=== PATIENT | female | born 1960 | race Caucasian/White ===

== ENCOUNTER → 2022-01-07 | Outpatient (CLI) | payer OTHER ==
[~2022-01-07] MED LIST: BEBTELOVIMAB (EUA) 175 MG/2 ML VIAL IV ONE; SODIUM CHLORIDE 0.9% 500 ML 500 ML in EMPTY BAG 1 BAG IV PRN
[2022-01-07 11:39] VITALS: RESP 18; TEMP 99.8
[2022-01-07 12:42] VITALS: BP 158/80; PULSE 105
== END ==
LOC: PROCWHC3 10:55
PROVIDERS: ATTEND Physician Assistant
DX: U07.1 COVID-19 (principal); E66.9 Obesity, unspecified; E11.9 Type 2 diabetes mellitus without complications; Z28.310 Unvaccinated for COVID-19; Z68.36 Body mass index [BMI] 36.0-36.9, adult
CPT/HCPCS: Q0222; M0222

== ENCOUNTER → 2022-04-29 | Outpatient (CLI) | payer OTHER ==
--- NOTE | 2022-04-29 10:32 | US ---
EXAMINATION TYPE: US abdomen complete DATE OF EXAM: 04/29/2022 COMPARISON: NONE CLINICAL HISTORY: R10.9 UNSPECIFIED ABDOMINAL PAIN. TECHNIQUE: Multiple sonographic images of the abdomen are obtained. FINDINGS: EXAM MEASUREMENTS: Liver Length: 20.6 cm Gallbladder Wall: 0.2 cm CBD: 0.5 cm Spleen: 14.0 cm Right Kidney: 12.0 x 4.1 x 4.8 cm Left Kidney: 12.3 x 5.1 x 5.1cm SAFETY AND SECURITY MANAGER NOTES: Patient of large body habitus. Extensive overlying bowel gas obscuring midline. Pancreas: Obscured by bowel gas Liver: Increased attenuation, measures large Gallbladder: wnl Evidence for sonographic Byrne's sign: no CBD: wnl Spleen: measures large Right Kidney: wnl Left Kidney: cyst measuring 1.3 x 1.3 x 1.3cm Upper IVC: wnl Abd Aorta: Mostly obscured by overlying bowel gas The intrahepatic portion of the IVC and proximal abdominal aorta are within normal limits. There is no evidence of cholelithiasis. Common bile duct is unremarkable. The visualized portions of the koehler creas are homogenous. Kidneys are symmetric and free of hydronephrosis. No solid renal lesions ar e seen. IMPRESSION: 1. Hepatomegaly with underlying hepatic steatosis. 2. Splenomegaly
== END | disposition home or self-care (01) ==
LOC: RADUSWWP 09:24
PROVIDERS: ATTEND Family Medicine
DX: K76.0 Fatty (change of) liver, not elsewhere classified (principal); R16.2 Hepatomegaly with splenomegaly, not elsewhere classified
CPT/HCPCS: 76700

== ENCOUNTER → 2022-05-20 | Outpatient (CLI) | payer OTHER ==
--- NOTE | 2022-05-20 09:26 | NM ---
EXAMINATION TYPE: NM hepatobiliary w EF DATE OF EXAM: 05/20/2022 COMPARISON: NONE INDICATION: R 10.9 TECHNIQUE: After the intravenous administration of 4.3 mCi Tc 99m Mebrofenin hepatobiliary scintigrap hy is performed. Images were obtained immediately post injection. FINDINGS: There is prompt uptake and excretion of radiotracer by the liver. Extrahepatic ducts are identified at C4 minutes. The gallbladder is visualized within 6 minutes. Small bowel activity is noted within 12 minutes. At one hour 8 ounces of oral ensure plus is given to mimic CCK and gallbladder ejection fraction is c alculated at 71 %, which is in the normal range. (Normal >35% and <80%.). IMPRESSION: 1. Normal hepatobiliary scan
== END | disposition home or self-care (01) ==
LOC: RADNMMAIN 06:52
PROVIDERS: ATTEND Family Medicine
DX: R10.9 Unspecified abdominal pain (principal)
CPT/HCPCS: 78226; A9537

== ENCOUNTER → 2023-04-20 | Outpatient (CLI) | payer OTHER ==
--- NOTE | 2023-04-20 12:26 | US ---
EXAMINATION TYPE: US liver DATE OF EXAM: 04/20/2023 COMPARISON: NONE CLINICAL INDICATION: Female, 62 years old with history of R17. UNSPECIFIED JAUNDICE; Patient denies a ny signs or symptoms; Hx HTN and DM TECHNIQUE: Multiple sonographic images of the right upper quadrant are obtained. FINDINGS: EXAM MEASUREMENTS: Liver Length: 20.2 cm Gallbladder Wall: 0.2 cm CBD: 0.6 cm Right Kidney: 12.5 x 5.5 x 5.5 cm NAVAL ARCHITECT SPECIALIST NOTES: Pancreas: wnl Liver: Increased attenuation; focal fatty infiltration adjacent to gallbladder Gallbladder: ? sludge seen with change in patient position Evidence for sonographic Byrne's sign: No CBD: wnl Right Kidney: wnl IMPRESSION: 1. Mobile sludge within the gallbladder. 2. Mild fatty infiltration of the liver.
== END | disposition home or self-care (01) ==
LOC: RADUSWWP 07:22
PROVIDERS: ATTEND Family Medicine
DX: K76.0 Fatty (change of) liver, not elsewhere classified (principal); K82.8 Other specified diseases of gallbladder; I10 Essential (primary) hypertension; E11.9 Type 2 diabetes mellitus without complications
CPT/HCPCS: 76705

== ENCOUNTER → 2023-05-18 | Outpatient (CLI) | payer OTHER ==
--- NOTE | 2023-05-18 13:30 | US ---
EXAMINATION TYPE: US venous doppler duplex LE DATE OF EXAM: 05/18/2023 1:12 PM COMPARISON: NONE CLINICAL INDICATION: Female, 62 years old with history of M79.662 PAIN IN LEFT LOWER LEG; SIDE PERFORMED: Left TECHNIQUE: Venous duplex examination of the left lower extremity from the groin to the upper calf performed usin g B-mode, color flow and spectral analysis. VESSELS IMAGED: Common Femoral Vein Deep Femoral Vein Greater Saphenous Vein * Femoral Vein Popliteal Vein Small Saphenous Vein * Proximal Calf Veins (* superficial vessels) FINDINGS: LEFT LOWER EXTREMITY: There is color flow, spontaneous and phasic flow with normal compressibility seen of the external nivia ac vein, common femoral vein, greater saphenous vein, profunda, femoral vein, and popliteal vein. Pro ximal calf veins show normal compressibility. No thrombus is seen throughout the left lower extremit y. Left Leg: Negative for DVT IMPRESSION: No evidence of DVT in the left lower extremity.
== END | disposition home or self-care (01) ==
LOC: RADUSWWP 12:49
PROVIDERS: ATTEND Family Medicine
DX: M79.662 Pain in left lower leg (principal)

== ENCOUNTER → 2023-05-25 | Outpatient (CLI) | payer OTHER ==
[~2023-05-25] MED LIST changes: -BEBTELOVIMAB (EUA) 175 MG/2 ML VIAL IV ONE; +REGADENOSON 0.4 MG/5 ML SYRINGE IV PRN; -SODIUM CHLORIDE 0.9% 500 ML 500 ML in EMPTY BAG 1 BAG IV PRN
--- NOTE | 2023-05-25 11:40 | NM ---
EXAMINATION TYPE: NM stress lexiscan cardiolite DATE OF EXAM: 05/25/2023 COMPARISON: NONE CLINICAL INDICATION: Female, 62 years old with history of Z91.89 PERSONAL RISK FACTORS; TECHNIQUE: After the intravenous administration of 10.3 mCi Tc 99m Sestamibi - Cardiolite resting SP ECT images acquired 57 minutes post injection. The patient received 0.4mg Lexiscan, 25.8 mCi Tc 99m Sestamibi - Stress images obtained [address] injection FINDINGS: Review of stress and rest SPECT images demonstrates fixed perfusion defect along the anterior wall as well as the mid to basal septal wall. No distinct reversibility is identified. Gated analysis shows normal wall motion with an estimated left ventricular ejection fraction of 77 %. However, TID is inc reased at 1.21. IMPRESSION: 1. Increased transient ischemic dilatation ratio at 1.21. This can be seen in the setting of multives kamini, global inducible ischemia. Further workup can be considered. 2. Other areas show fixed defects along the anterior and anteroseptal trivedi. This could represent com bination of old infarct and attenuation artifact.
--- NOTE | 2023-05-25 13:54 | CA ---
Lexiscan Nuclear Stress Test Report Name: Sofya Malone Exam Date: 05/25/2023 10:07 Exam Location: [place] Stress Ht (in): 61 Wt (lb): 199 BSA: 1.89 Ordering Phys: Aditya Fischer MD Referring Phys: Yazmin Boyd PAC Technologist: Miguel Morales Age: 62 Gender: F : 1960 Procedure CPT: Indications: Z91.89 PERSONAL RISK FACTORS ICD-10 Codes: Patient History: DIFFICULTY IN BREATHING, HTN, ELEVATED CHOLESTEROL LEVELS, FORMER SMOKER - QUIT 30 YEARS AGO Medications: Meds past 24 hrs: Pretest Chest Pain: STRESS TEST Lexiscan Protocol Exercise Duration (min:sec): 02:[address] Depressions (mm): Angina Score: Fry Score: Resting HR (bpm): 80 Peak HR (bpm): 107 Resting BP (mmHg): 160 / 90 Peak BP (mmHg): 163 / 84 MPHR: 160 Target HR: 136 % MPHR: 67 METS: 1.0 Total Dose: Peak Dose: Atropine: Double Product: 65850 BP Response: Stress Termination: INFUSION COMPLETE Stress Symptoms: NO SIDE EFFECTS Stress Summary: ECG ANALYSIS Resting ECG: Stress ECG: CONCLUSIONS No ECG evidence for ischemia No arrhythmias noted Nuclear portion will be reported separately Elevated blood pressure readings Dr. Jose Angel Calles MD (Electronically Signed) Final Date: 25 May 2023 13:53
== END | disposition home or self-care (01) ==
LOC: RADNMMAIN 08:35
PROVIDERS: ATTEND Family Medicine
DX: I51.7 Cardiomegaly (principal); Z91.89 Other specified personal risk factors, not elsewhere classified
CPT/HCPCS: 93017; 78452; A9500; J2785

== ENCOUNTER → 2023-05-26 | Outpatient (CLI) | payer OTHER ==
--- NOTE | 2023-06-04 19:06 | MM ---
Reason for Exam: Screening (asymptomatic). Last mammogram was performed 13 year(s) and 9 month(s) ago. Patient History: Menarche at age 16. First Full-Term at age 28. Left ovary removed at age 52. Right ovary removed at age 52. Hysterectomy at age 52. Risk Values: Tata 5 year model risk: 1.5%. NCI Lifetime model risk: 7.4%. Prior Study Comparison: 08/13/2009 Bilateral Screening Mammogram, [facility], [place]. Tissue Density: There are scattered fibroglandular densities. Findings: Analyzed By CAD. Left upper outer quadrant calcifications for which further magnification views are recommended. Additional lateral subareolar nodularity on the left for which further spot compression views are recommended. No other discrete abnormality seen. Overall Assessment: Incomplete: need additional imaging evaluation, BI-RAD 0 Management: Special View Mammogram of the left breast. Diagnostic Breast Ultrasound of the left breast. . [facility] will attempt to contact patient to return for supplemental views and ultrasound if indicated. Electronically signed and approved by: Melany Jones M.D. Radiologist
== END | disposition home or self-care (01) ==
LOC: RADMAMWWP 14:52
PROVIDERS: ATTEND Family Medicine
DX: Z12.31 Encounter for screening mammogram for malignant neoplasm of breast (principal)
CPT/HCPCS: 77067

== ENCOUNTER → 2023-06-11 | Outpatient (CLI) | payer OTHER ==
--- NOTE | 2023-06-11 13:50 | MM ---
Reason for Exam: Additional evaluation requested from abnormal screening. Last screening mammogram was performed less than 1 month ago. Patient History: Menarche at age 16. First Full-Term at age 28. Left ovary removed at age 52. Right ovary removed at age 52. Hysterectomy at age 52. Risk Values: Tata 5 year model risk: 1.5%. NCI Lifetime model risk: 7.4%. Prior Study Comparison: 08/13/2009 Bilateral Screening Mammogram, [facility], [place]. 05/26/2023 Bilateral MG screening mammo w CAD, [facility]. Tissue Density: Left: There are scattered fibroglandular densities. Findings: Analyzed By CAD. Ossifications upper outer left breast appear benign given coarse appearance of her continued six-month follow-up is advised. Nodular subareolar density persists at the approximate 1 to 2:00 position left breast 2 cm from the nipple. Ultrasound is recommended. Overall Assessment: Incomplete: need additional imaging evaluation, BI-RAD 0 Management: Diagnostic Breast Ultrasound of the left breast. . Results were given to the patient verbally at the time of exam. Patient should continue monthly self-breast exams. A clinical breast exam by your physician is recommended on an annual basis. This exam should not preclude additional follow-up of suspicious palpable abnormalities. Note on Tata scores and lifetime risk: 1. A Tata score greater than 3% is considered moderate risk. If this is the case, consider specialist referral to assess eligibility for a risk reducing agent. 2. If overall lifetime risk for the development of breast cancer is 20% or higher, the patient may qualify for future screening with alternating mammogram and breast MRI. Electronically signed and approved by: Arcadio Franklin M.D. Radiologis
--- NOTE | 2023-06-11 13:59 | USB ---
Reason for Exam: Additional evaluation requested from abnormal screening. Patient History: Menarche at age 16. First Full-Term at age 28. Left ovary removed at age 52. Right ovary removed at age 52. Hysterectomy at age 52. Risk Values: Tata 5 year model risk: 1.5%. NCI Lifetime model risk: 7.4%. Technique: Method: Targeted. Prior Study Comparison: 08/13/2009 Bilateral Screening Mammogram, [facility], [place]. 05/26/2023 Bilateral MG screening mammo w CAD, [facility]. Findings: The upper section of the breast of the left breast, the axilla of the left breast and the retroareolar of the left breast were scanned. Hypoechoic probable complex cystic lesions noted 12:00 measuring 5 x 3 mm and at 1:00 5 x 3 mm as well. Six-month follow-up advised.. Overall Assessment: Probably benign, BI-RAD 3 Management: Diagnostic Breast Ultrasound of the left breast in 6 months. A clinical breast exam by your physician is recommended on an annual basis and results should be correlated with mammographic findings. This exam should not preclude additional follow-up of suspicious palpable abnormalities. Results were given to the patient verbally at the time of exam. Electronically signed and approved by: Arcadio Franklin M.D. Radiologis
== END | disposition home or self-care (01) ==
LOC: RADMAMWWP 13:06
PROVIDERS: ATTEND Family Medicine
DX: R92.322 Mammographic fibroglandular density, left breast (principal)
CPT/HCPCS: 77065; 76642; G0279; 77061

== ENCOUNTER → 2024-01-18 | Outpatient (CLI) | payer OTHER ==
--- NOTE | 2024-01-18 12:58 | CT ---
EXAMINATION TYPE: CT chest w con CT DLP: 761 mGycm, Automated exposure control for dose reduction was used. DATE OF EXAM: 01/18/2024 12:24 PM COMPARISON: None CLINICAL INDICATION:Female, 63 years old with history of J18.1 lobar pneumonia; PHH, Lobar pneumonia, lung consolidation. TECHNIQUE: Multiple axial images were obtained through the chest following the administration of 100 cc of Isovue 300. . Coronal and sagittal reformats reviewed. FINDINGS: LUNGS/ PLEURA: No pleural effusion, pneumothorax, or focal consolidation. Few scattered pulmonary nod ules with largest in the left upper lobe laterally measuring up to 6.3 mm (series 4, image 11). AIRWAY: Patent and unremarkable.. HEART: Size within normal limits. No pericardial effusion. MEDIASTINUM: No gross evidence of adenopathy. VASCULATURE: No aortic aneurysm. MUSCULOSKELETAL: No acute osseous abnormalities. DISH of the thoracic spine. SOFT TISSUES/LYMPH NODES: Unremarkable. LOWER NECK: Few subcentimeter hypodense nodules within the isthmus and left thyroid lobe. UPPER ABDOMEN: Diffuse low-attenuation to the liver parenchyma. IMPRESSION: 1. No acute thoracic process. 2. Few scattered pulmonary nodules with largest in the left upper lobe measuring up to 6.3 mm. Follow -up CT chest in 6-12 months is recommended. 3. Hepatic steatosis.
== END | disposition home or self-care (01) ==
LOC: RADCTMAIN 11:42
PROVIDERS: ATTEND Family Medicine
DX: J18.1 Lobar pneumonia, unspecified organism
CPT/HCPCS: 71260

== ENCOUNTER → 2024-02-04 | Outpatient (CLI) | payer OTHER ==
--- NOTE | 2024-02-04 15:24 | USB ---
Reason for Exam: Follow-up at short interval from prior study. Patient History: Menarche at age 16. First Full-Term at age 28. Left ovary removed at age 52. Right ovary removed at age 52. Hysterectomy at age 52. Risk Values: Tata 5 year model risk: 1.5%. NCI Lifetime model risk: 7.2%. Technique: Method: Targeted. Prior Study Comparison: 08/13/2009 Bilateral Screening Mammogram, [facility], [place]. 05/26/2023 Bilateral MG screening mammo w [facility], [facility]. 06/11/2023 Left MG 3D work up w/cad , [facility]. Findings: The upper section of the breast of the left breast, the axilla of the left breast and the retroareolar of the left breast were scanned. At the 12:00 position 2 cm nipple is a Hypoechoic areas that are adjacent. This region measures 0.9 x 0.6 x 0.3 cm. This area appears similar to comparison. Previous axillary lymph node not identified on the current examination. Overall Assessment: Probably benign, BI-RAD 3 Management: Screening Mammogram of both breasts in 4 months. Diagnostic Breast Ultrasound of the left breast in 4 months. A clinical breast exam by your physician is recommended on an annual basis and results should be correlated with mammographic findings. This exam should not preclude additional follow-up of suspicious palpable abnormalities. Results were given to the patient verbally at the time of exam. [facility], , 02/04/2024 3:07 PM. Electronically signed and approved by: Harman Ren D.O. Radiologis
== END | disposition home or self-care (01) ==
LOC: RADUSWWP 13:23
PROVIDERS: ATTEND Family Medicine
DX: R92.2 Inconclusive mammogram (principal)

== ENCOUNTER → 2024-05-16 | Outpatient (CLI) | payer OTHER ==
[2024-05-16 22:44] LABS: Alternaria alternata IgE <0.10 kU/L; Aspergillus fumagatus IgE <0.10 kU/L; Birch IgE <0.10 kU/L; Cat Epith & Dander IgE <0.10 kU/L; Cladosporian herbarum IgE <0.10 kU/L; Cockroach IgE <0.10 kU/L; Dermato. farinae IgE 0.97 kU/L; Dog Dander IgE <0.10 kU/L; Elm IgE <0.10 kU/L; Maple (Box Elder) IgE <0.10 kU/L; Oak IgE <0.10 kU/L; Ragweed,Common IgE <0.10 kU/L; Red Top (Bentgrass) IgE <0.10 kU/L
== END | disposition home or self-care (01) ==
LOC: LABWHC1 14:24
PROVIDERS: ATTEND Internal Medicine Critical Care Medicine
DX: R06.00 Dyspnea, unspecified (principal)
CPT/HCPCS: 36415; 82785; 85008; 86003

== ENCOUNTER → 2024-07-11 | Outpatient (CLI) | payer OTHER ==
--- NOTE | 2024-07-11 10:50 | MM ---
Reason for Exam: Follow-up at short interval from prior study. Last mammogram was performed 1 year(s) and 2 month(s) ago. Patient History: Menarche at age 16. First Full-Term at age 28. Left ovary removed at age 52. Right ovary removed at age 52. Hysterectomy at age 52. Risk Values: Tata 5 year model risk: 1.5%. NCI Lifetime model risk: 7.2%. Prior Study Comparison: 08/13/2009 Bilateral Screening Mammogram, [facility], [place]. 05/26/2023 Bilateral MG screening mammo w CAD, [facility]. 06/11/2023 Left MG 3D work up w/cad LT, [facility]. 06/11/2023 Left US breast workup limited LT, [facility]. 02/04/2024 Left US breast limited LT, [facility]. Tissue Density: There are scattered areas of fibroglandular density. Findings: Analyzed By CAD. Calcifications upper outer quadrant left breast middle depth remain unchanged for one year. An additional one-year follow-up can be performed. Previous bilateral subareolar nodularity left breast no longer well seen. Findings suggest a benign etiology. Chronic nodularity along the richer is a regular plain right MLO view. No significant change otherwise seen. Overall Assessment: Probably benign, BI-RAD 3 Management: Diagnostic Mammogram of both breasts in 1 year. To demonstrate 2 years of stability of the patient's left breast calcifications. Results were given to the patient verbally at the time of exam. Patient should continue monthly self-breast exams. A clinical breast exam by your physician is recommended on an annual basis. This exam should not preclude additional follow-up of suspicious palpable abnormalities. Note on Tata scores and lifetime risk: 1. A Tata score greater than 3% is considered moderate risk. If this is the case, consider specialist referral to assess eligibility for a risk reducing agent. 2. If overall lifetime risk for the development of breast cancer is 20% or higher, the patient may qualify for future screening with alternating mammogram and breast MRI. [facility], , 07/11/2024 10:47 AM. Electronically signed and approved by: Melany Jones M.D. Radiologist
== END | disposition home or self-care (01) ==
LOC: RADMAMWWP 10:12
PROVIDERS: ATTEND Family Medicine
DX: R92.8 Other abnormal and inconclusive findings on diagnostic imaging of breast (principal); R92.323 Mammographic fibroglandular density, bilateral breasts
CPT/HCPCS: 77066; G0279; 77062

== ENCOUNTER → 2024-08-31 | Outpatient (CLI) | payer OTHER ==
[2024-08-31 13:57] LABS: African American GFR (CKD) >90 (>60 ml/min/1.73 sqM); Blood Urea Nitrogen 15 mg/dL (7-17); Non-African American GFR(CKD) >90 (>60 ml/min/1.73 sqM)
--- NOTE | 2024-08-31 14:35 | CT ---
CT thorax with contrast HISTORY: Pneumonia. COMPARISON: 01/18/2024. TECHNIQUE: Multiple axial images are obtained through the thorax following IV contrast material. FINDINGS: There is no airspace consolidation or abnormal interstitial density. There is no pleural effusion or pneumothorax. There are are multiple scattered sub-3 mm nodules which are stable. There is a stable 6.4 nodule in t he left upper lobe. There is a new 7.6 mm groundglass juxtapleural minor fissural nodule on the right . There is no mediastinal, hilar or axillary adenopathy. The great vessels and chest are normal in size. Limited scanning through the upper abdomen reveals no significant abnormality. There are no focal osseous lesions. IMPRESSION: 1. Multiple stable pulmonary nodules. 2. New groundglass nodule on the right measuring 7.[address] thorax in 6 months is recommended to conf irm stability. 3. No acute cardiopulmonary disease [facility], , 08/31/2024 2:32 PM
== END | disposition home or self-care (01) ==
LOC: RADCTMAIN 12:58
PROVIDERS: ATTEND Internal Medicine Critical Care Medicine
DX: R91.8 Other nonspecific abnormal finding of lung field (principal)
CPT/HCPCS: 82565; 84520; 71260; 36415; Q9967

== ENCOUNTER → 2024-09-01 | Outpatient (CLI) | payer OTHER ==
--- NOTE | 2024-09-01 10:44 | US ---
EXAMINATION TYPE: US abdomen limited DATE OF EXAM: 09/01/2024 COMPARISON: US 04/29/22 CLINICAL INDICATION: Female, 64 years old with history of R10.12 LUQ PAIN; LUQ pain, positive mono te st on Wednesday TECHNIQUE: Multiple sonographic images of the left upper quadrant are obtained. FINDINGS: EXAM MEASUREMENTS: Spleen: 11.9 cm Left Kidney: 12.1x5.8x5.1 cm WOUND CARE NURSE NOTES: 1. Spleen: wnl 2. Left Kidney: hydro Nonenlarged normal-appearing spleen. Mild left hydronephrosis. No renal calculi identified. Corticome dullary differentiation is maintained. No solid renal mass visualized. IMPRESSION: 1. Mild left hydronephrosis. 2. Unremarkable spleen. [facility], , 09/01/2024 10:41 AM
== END | disposition home or self-care (01) ==
LOC: RADUSWWP 08:22
PROVIDERS: ATTEND Family Medicine
DX: N13.39 Other hydronephrosis (principal)
CPT/HCPCS: 76705

== ENCOUNTER → 2024-09-07 | Outpatient (CLI) | payer OTHER ==
[2024-09-07 22:25] LABS: EBV-EA (IgG) 0.2 AI; EBV-EBNA(IgG) >8.0; EBV-VCA (IgG) 7.9 AI; EBV-VCA (IgM) <0.2 AI
== END | disposition home or self-care (01) ==
LOC: LABWHC1 13:09
PROVIDERS: ATTEND Internal Medicine Critical Care Medicine
DX: R53.82 Chronic fatigue, unspecified (principal)
CPT/HCPCS: 36415; 86663; 86664; 86665

== ENCOUNTER → 2024-09-11 | Outpatient (CLI) | payer OTHER ==
--- NOTE | 2024-09-13 12:44 | P.PCN ---
Date of Procedure: 09/12/24 Indications for Procedure: Home sleep study report Date of service is 09/11/2024 History This is a 65-year-old female patient who is undergoing home sleep study due to concerns of sleep apnea. The patient has chronic dyspnea. She is currently under investigation. Her FEV1 is noted of 74% of predicted. Physical findings The patient's weight is 217 with a body mass index at 41.0. Pulse ox is 97% on room air oxygen. Technical description The [employer] system was used to complete his home sleep study. This is a type III of the study evaluation. The total recording duration was 10 hours and 10 minutes. The study started 9:12 PM and the study ended at 7:22 AM. There was a total of 9 hours and 56 minutes of flow monitoring and 9 hours and 55 minutes of oxygen saturation monitoring. Results Respiratory analysis showed a total of 8 obstructive apneas and 43 obstructive hypopneas and the resulting AHI was 5. AHI in the supine body position was 5.9 Oxygenation analysis The baseline pulse ox was 94% room air oxygen. Average pulse ox during sleep was 93%. Minimum pulse ox recorded was 87% Cardiac summary Average heart rate was 88 with a minimum heart rate of 68 and a maximum of 116 bpm Assessment Mild TAYE with an AHI of 5.1. No significant nocturnal oxygen saturations Obesity with a BMI of 41 Chronic dyspnea Plan Encourage weight loss No need for CPAP therapy Will discuss the findings with patient office.
== END ==
LOC: 3 N SLEEP 12:57
PROVIDERS: ATTEND Internal Medicine Critical Care Medicine
DX: G47.33 Obstructive sleep apnea (adult) (pediatric) (principal); E66.9 Obesity, unspecified; R06.09 Other forms of dyspnea; Z68.41 Body mass index [BMI] 40.0-44.9, adult

== ENCOUNTER 2024-10-25 16:27 | Emergency (ER) | payer OTHER ==
--- NOTE | 2024-10-25 16:46 | ED ---
Recheck HPI - General Chief Complaint: Recheck/Abnormal Lab/Rx Stated Complaint: Facial Bleeding Time Seen by Provider: 10/25/24 16:43 Source: patient, family, RN notes reviewed Mode of arrival: ambulatory Limitations: no limitations - History of Present Illness Initial Comments: 64-year-old female presented to ER for evaluation of bleeding lip lesion. Patient states that it has been there since she gave to her children. She was told by her primary care doctor that it is a "vessel close to the skin". She states that will occasionally bleed on and off. She states since this morning she has been having persistent oozing from wound. She has tried a tami stick, liquid bandage and pressure without cessation of bleeding. She is not on blood thinners. She denies any injuries or traumas. Lesion is not painful. Denies any dizziness, lightheadedness, chest pain or shortness of breath. No other complaints. - Related Data Home Medications Medication Instructions Recorded Confirmed DULoxetine HCL [Cymbalta] 60 mg PO DAILY 01/07/22 01/07/22 Ibuprofen [Advil] 200 mg PO Q8HR PRN 01/07/22 01/07/22 carvediloL 25 mg PO BID 01/07/22 01/07/22 metFORMIN HCL 500 mg PO BID 01/07/22 01/07/22 Allergies Allergy/AdvReac Type Severity Reaction Status Date / Time No Known Allergies Allergy Verified 10/25/24 16:31 Review of Systems ROS Statement: Those systems with pertinent positive or pertinent negative responses have been documented in the HPI. ROS Other: All systems not noted in ROS Statement are negative. Past Medical History Past Medical History: No Reported History Past Surgical History: No Surgical Hx Reported General Exam Limitations: no limitations General appearance: alert, in no apparent distress ENT exam: Present: normal oropharynx, mucous membranes moist, other Respiratory exam: Present: normal lung sounds bilaterally. Absent: respiratory distress, wheezes, rales, rhonchi, stridor Cardiovascular Exam: Present: regular rate, normal rhythm, normal heart sounds. Absent: systolic murmur, diastolic murmur, rubs, gallop, clicks Neurological exam: Present: alert, oriented X3, CN II-XII intact Skin exam: Present: warm, dry, intact, normal color, other (Pinpoint erythematous lesion just superior to upper right lip. There is no active bleeding. Inner oral mucosa unremarkable.). Absent: rash Course Vital Signs 10/25/24 10/25/24 16:28 17:02 Temperature 97.8 F 98.0 F Pulse Rate 89 84 Respiratory 17 18 Rate Blood Pressure 166/76 160/72 O2 Sat by Pulse 97 99 Oximetry Medical Decision Making - Medical Decision Making Was pt. sent in by a medical professional or institution (, YOLANDA, INDUSTRIAL ECOLOGY TECHNICIAN, urgent care, hospital, or long-term...) When possible be specific @ -No Did you speak to anyone other than the patient for history (EMS, parent, family, police, friend...)? What history was obtained from this source @ -Significant other, bedside, aiding in HPI past medical history. Did you review nursing and triage notes (agree or disagree)? Why? @ -I reviewed and agree with nursing and triage notes Were old charts reviewed (outside hosp., previous admission, EMS record, old EKG, old radiological studies, urgent care reports/EKG's, long-term records)? Report findings @ -No old charts were reviewed Differential Diagnosis (chest pain, altered mental status, abdominal pain women, abdominal pain men, vaginal bleeding, weakness, fever, dyspnea, syncope, headache, dizziness, GI bleed, back pain, seizure, CVA, palpatations, mental health, musculoskeletal)? @ -Laceration, abrasion, squamous of carcinoma, basal cell carcinoma, cyst... This list is not meant to be all-inclusive EKG interpreted by me (3pts min.). @ -None done X-rays interpreted by me (1pt min.). @ -None done CT interpreted by me (1pt min.). @ -None done U/S interpreted by me (1pt. min.). @ -None done What testing was considered but not performed or refused? (CT, X-rays, U/S, labs)? Why? @ -None What meds were considered but not given or refused? Why? @ -None Did you discuss the management of the patient with other professionals (professionals i.e. , YOLANDA, INDUSTRIAL ECOLOGY TECHNICIAN, lab, RT, psych nurse, public health social worker, carpet sewer, teacher, navy senior officer, shelter case manager)? Give summary @ -No Was smoking cessation discussed for >3mins.? @ -No Was critical care preformed (if so, how long)? @ -No Were there social determinants of health that impacted care today? How? (Homelessness, low income, unemployed, alcoholism, drug addiction, t ransportation, low edu. Level, literacy, decrease access to med. care, penitentiary, rehab)? @ -No Was there de-escalation of care discussed even if they declined (Discuss DNR or withdrawal of care, Hospice)? DNR status @ -No What co-morbidities impacted this encounter? (DM, HTN, Smoking, COPD, CAD, Cancer, CVA, ARF, Chemo, Hep., AIDS, mental health diagnosis, sleep apnea, morbid obesity)? @ -None Was patient admitted / discharged? Hospital course, mention meds given and route, prescriptions, significant lab abnormalities, going to OR and other pertinent info. @ -Discharged. 64-year-old female presented to ER for evaluation of bleeding lip lesion. Vital signs stable. Patient in no signs of acute distress nontoxic-appearing. Exam remarkable for a pinpoint lesion to left upper lip. There is no active bleeding noted. Inner oral mucosa unremarkable. No blood thinner use. I educated patient on instructions if bleeding were to recur including consistent pressure for 10 minutes and repeat if bleeding reoccurs. I advised her to follow-up closely with dermatology for biopsy as skin cancer cannot be ruled out. Strict return parameters discussed. Patient discharged in stable condition. Patient verbally expressed understanding agree with care plan. Case discussed with ED attending, . Undiagnosed new problem with uncertain prognosis? @ -No Drug Therapy requiring intensive monitoring for toxicity (Heparin, Nitro, Insulin, Cardizem)? @ -No Were any procedures done? @ -No Diagnosis/symptom? @ -Skin lesion Acute, or Chronic, or Acute on Chronic? @ -Acute Uncomplicated (without systemic symptoms) or Complicated (systemic symptoms)? @ -Uncomplicated Side effects of treatment? @ -No Exacerbation, Progression, or Severe Exacerbation? @ -No Poses a threat to life or bodily function? How? (Chest pain, [place], [place], pneumonia, PE, COPD, DKA, ARF, appy, cholecystitis, CVA, Diverticulitis, Homicidal, Suicidal, threat to staff... and all critical care pts) @ - Malignancy cannot be ruled out Disposition Clinical Impression: Skin lesion Disposition: HOME SELF-CARE Condition: Stable Additional Instructions: If bleeding were to recur apply firm pressure for 10 to 20 minutes. Do not remove pressure during that timeframe. I recommend you follow-up closely with dermatology for further evaluation as cauterization or biopsy may be necessary. Return to the ER for any new or worsening concerns. Is patient prescribed a controlled substance at d/c from ED?: No Referrals: Aditya Fischer MD [Primary Care Provider] - 1-2 days Charisma Salinas MD [STAFF PHYSICIAN] - 1-2 days Time of Disposition: 16:56
[2024-10-25 17:04] VITALS: BP 160/72; PULSE 84; RESP 18; TEMP 98
== END 2024-10-25 17:04 | disposition home or self-care (01) ==
LOC: EC 16:27
DX: L98.9 Disorder of the skin and subcutaneous tissue, unspecified (principal)
CPT/HCPCS: 99283